=== PATIENT | female | born 1945 | race Caucasian/White ===

== ENCOUNTER 2019-05-07 06:35 | Inpatient (IN) | payer OTHER ==
[~2019-05-07] VITALS: Ht 160 cm; Wt 64.6 kg
[2019-05-07 07:50] LABS: PLATELET COUNT 249 x10^3mcL (130-400); RED CELL DISTRIBUTION WIDTH 12.9 % (11.5-14.5)
[2019-05-07 08:47] LABS: CALCIUM 9.5 mg/dL (8.5-10.1); CARBON DIOXIDE 33.6 mmol/L (21-32); CHLORIDE SERUM 94 mmol/L (98-107); CREATININE SERUM 0.9 mg/dL (0.6-1.0); GLUCOSE SERUM 115 mg/dL (74-106); POTASSIUM SERUM 4.2 mmol/L (3.5-5.1); SODIUM SERUM 135 mmol/L (136-145)
[2019-05-07 08:51] LABS: ALBUMIN 4.1 g/dL (3.4-5.0); ALKALINE PHOSPHATASE 96 U/L (46-116); ALT/SGPT 34 U/L (14-59); AST/SGOT 39 U/L (15-37); BILIRUBIN TOTAL 0.7 mg/dL (0.20-1.00); LIPASE 115 IU/L (73-393); TOTAL PROTEIN, SERUM 8.2 g/dL (6.4-8.2)
[2019-05-07 09:53] LABS: BAND NEUTROPHIL 9 % (0-10); BASOPHIL 0 % (0-2); MONOCYTE 3 % (0-7); SEGMENTED NEUTROPHILS 82 % (37-75)
[2019-05-07 09:54] LABS: PLATELET MORPHOLOGY LARGE PLATELET SEEN; rbc morphology (normal/abnorm) NORMAL (NORMAL)
[2019-05-07 10:55] LABS: microscopic required? YES
[2019-05-07 11:01] LABS: MAGNESIUM 2.3 mg/dL (1.8-2.4); PHOSPHOROUS 2.9 mg/dL (2.5-4.9)
[2019-05-07 11:13] LABS: T3 TOTAL 0.7 ng/mL
[2019-05-07 12:26] VITALS: BP 148/57
[2019-05-07 13:45] LABS: CHOLESTEROL/HDL RATIO 1.9
[2019-05-07 14:42] LABS: FREE T4 1.4 ng/dL (0.76-1.46); FREE THYROXINE INDEX 3.9 ug/dL (1.4-4.5); T4(THYROXINE) 10.6 ug/dL (4.7-13.3)
[2019-05-07 15:30] VITALS: BP 104/44
[2019-05-07 19:40] VITALS: BP 131/55
[2019-05-08 07:03] LABS: BASOPHIL % 0.4 % (0-2); PLATELET COUNT 201 x10^3mcL (130-400); RED CELL DISTRIBUTION WIDTH 13.3 % (11.5-14.5)
[2019-05-08 07:27] LABS: urine erythrocyte NEGATIVE0 (NEGATIVE)
[2019-05-08 07:35] LABS: CALCIUM 8.3 mg/dL (8.5-10.1); CARBON DIOXIDE 29.1 mmol/L (21-32); CHLORIDE SERUM 103 mmol/L (98-107); CREATININE SERUM 0.8 mg/dL (0.6-1.0); GLUCOSE SERUM 88 mg/dL (74-106); POTASSIUM SERUM 3.3 mmol/L (3.5-5.1); SODIUM SERUM 139 mmol/L (136-145)
[2019-05-08 07:46] VITALS: BP 146/58
[2019-05-08 11:52] VITALS: BP 138/51
[2019-05-08 16:24] VITALS: BP 134/54
[2019-05-08 21:08] VITALS: BP 128/63
[2019-05-09 05:22] VITALS: BP 144/71
[2019-05-09 06:42] LABS: BASOPHIL % 0.9 % (0-2); PLATELET COUNT 213 x10^3mcL (130-400); RED CELL DISTRIBUTION WIDTH 13.4 % (11.5-14.5)
[2019-05-09 07:10] LABS: CALCIUM 8.3 mg/dL (8.5-10.1); CARBON DIOXIDE 30.8 mmol/L (21-32); CHLORIDE SERUM 105 mmol/L (98-107); CREATININE SERUM 0.7 mg/dL (0.6-1.0); GLUCOSE SERUM 83 mg/dL (74-106); SODIUM SERUM 141 mmol/L (136-145)
[2019-05-09 08:56] VITALS: BP 152/59
[2019-05-09] MEDS ORDERED: CIPRO500 MG PO (10:23)
[2019-05-09] MEDS ORDERED: ZOF4 PO (10:24)
[2019-05-09 11:11] VITALS: BP 145/61
[2019-05-09 12:40] VITALS: BP 135/54
== END 2019-05-09 13:56 | disposition home or self-care (01) | DRG 872 ==
LOC: ED 06:35 → DU 10:34
PROVIDERS: Emergency Medicine; ADMIT Internal Medicine
DX: A41.9 Sepsis, unspecified organism (principal); N39.0 Urinary tract infection, site not specified; E87.1 Hypo-osmolality and hyponatremia; I10 Essential (primary) hypertension; E78.5 Hyperlipidemia, unspecified; E03.9 Hypothyroidism, unspecified
CPT/HCPCS: 82962; 84439; 87804; 94150; 97116-GP; G0378; J0696; J2405; J7030; J7060; Q0092